=== PATIENT | male | born 1985 | race African-American/Black ===

== ENCOUNTER 2025-05-10 17:20 | Emergency (ER) | payer OTHER ==
[~2025-05-10] VITALS: Ht 177.8 cm; Wt 90.0 kg
[2025-05-10 18:53] VITALS: BP 114/98; PULSE 78; RESP 16; O2SAT 98
[2025-05-10 18:57] VITALS: TEMP 98.3
[2025-05-10] MEDS: ACETAMINOPHEN 325 MG TAB PO ONE (18:57)
[2025-05-10] MEDS ORDERED: CYCL-837 PO (19:01)
[2025-05-10] MEDS ORDERED: ACET500T58 PO (19:01)
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
--- NOTE | 2025-05-10 19:36 | DVH ---
EXAM: CT HEAD WITHOUT CONTRAST INDICATION: head injury TECHNIQUE: CT of the head without intravenous contrast. Radiation Dose Information: CT Dose: CTDI volume is 22.73 mGy. Dose-length product is 1645.51 mGy*cm The dose indicators for CT are the volume Computed Tomography (CT) Dose Index (CTDIvol) and the Dose Length Product (DLP), and are measured in units of mGy and mGy-cm, respectively. These indicators are not patient dose, but values generated from the CT scanner acquisition factors. The report includes radiation exposure data for exposures received during this examination. COMPARISON: None FINDINGS: There is no evidence of acute intracranial hemorrhage, extra-axial collection, mass effect, midline s hift, herniation or hydrocephalus. The ventricles, sulci and cisterns are age appropriate. The mcknight-white differentiation is intact. Patchy periventricular and subcortical white matter hypoattenuation is nonspecific but may be related to small vessel ischemic disease. The visualized paranasal sinuses and mastoid air cells are clear. The surrounding soft tissues and osseous structures are unremarkable. IMPRESSION: 1. No acute intracranial abnormality.
--- NOTE | 2025-05-10 19:59 | DVH ---
EXAM: XY LUMBAR SPINE 3 VIEW HISTORY: lumbar back pain COMPARISON: None TECHNIQUE: AP and lateral views of the lumbar spine and spot lateral of the lumbosacral junction were performed. FINDINGS: There are 5 mas-kpl-ckhiuub lumbar type vertebral bodies. The pedicles are intact. Sacroiliac joints are maintained. Hip joints spaces are maintained. Disc spaces are preserved. No acute fracture. O verlying soft tissues are intact. Visualized bowel gas obstructive. IMPRESSION: No acute fracture or traumatic malalignment.
--- NOTE | 2025-05-10 20:20 | DVH ---
CLINICAL HISTORY: neck pain TECHNIQUE: CT exam of the cervical spine was performed without intravenous contrast. This exam was pe rformed according to our departmental dose optimization program. Up-to-date CT equipment and radiatio n dose reduction techniques are utilized as appropriate. CTDI: 22.73 DLP: 539.31 WID: COMPARISON: None FINDINGS: There is normal cervical alignment with straightening of the cervical lordosis. The vertebral body he ights are maintained. No acute cervical fracture or subluxation is identified. No significant central or neural foraminal narrowing is identified. The paraspinous soft tissues are unremarkable. The aden g apices are clear. IMPRESSION: No acute osseous abnormality.
== END 2025-05-10 20:29 | disposition home or self-care (01) ==
LOC: ER 17:20 → EDBD 17:20 → ER 20:29
DX: S39.012A Strain of muscle, fascia and tendon of lower back, initial encounter (principal); S16.1XXA Strain of muscle, fascia and tendon at neck level, initial encounter; J45.909 Unspecified asthma, uncomplicated; Z79.899 Other long term (current) drug therapy; V49.9XXA Car occupant (driver) (passenger) injured in unspecified traffic accident, initial encounter; Y93.89 Activity, other specified; Y92.410 Unspecified street and highway as the place of occurrence of the external cause; Y99.8 Other external cause status
CPT/HCPCS: 70450; 72100; 72125